=== PATIENT | male | born 1990 | race Two or more races ===

== ENCOUNTER 2018-03-11 15:51 | Emergency (ER) | payer OTHER ==
[2018-03-11] MEDS ORDERED: NS 1,000 ML IV ONE ×3 (16:59→18:29)
--- NOTE | 2018-03-11 16:59 | EDPHY ---
H & P Stated Complaint: ?syncope/seizure at work/felt hot/dehydrated/drinks etoh daily /now tachycar Time Seen by Provider: 03/11/18 16:58 HPI/ROS: HPI: This is a 27-year-old male who presents with Chief Complaint: ?syncope/seizure at work/felt hot/dehydrated/drinks etoh daily/ now tachycar Location: head Quality: Fainted Duration: 3 hr prior to arrival Signs and Symptoms:+ nausea, + vomiting x3, no abdominal pain, no urinary symptoms, no testicular groin pain, no diarrhea, no headache, no chest pain, no shortness of breath Timing: Acute Severity: Moderate Context: Patient reports that he normally drinks 50-60 oz of beer nightly but over the last few days has trying to slowly cut back. He was at work outside today and 80 degree weather when he was walking back to the truck and started to feel lightheaded. Next thing he remembers he was lying next to the truck and his coworkers were standing over him. He reports for breakfast early this morning around 6:00 a.m. He had a same much but he has not drink any fluids today. He reports that shortly after the incident he started to feel nauseous and vomited x3. He reports that he feels better at this time but slightly anxious. He reports that if he does not drink in the morning he starts to get shakes and feel anxious. He denies any history of alcohol withdrawal seizures. 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 No primary care provider. Denies any headache/neck pain. Denies any seizure activity/urinary incontinence/tongue biting. Modifying Factors: None Comment: ROS: see HPI Constitutional: No fever, no chills, no weight loss Eyes: No blurred vision Respiratory: No shortness of breath, no cough Cardiovascular: No chest pain Gastrointestinal: + nausea, + vomiting, no diarrhea Genitourinary: No dysuria Extremities: No myalgias Neurologic: No weakness, no numbness Skin: No rashes Hematologic: No bruising, no bleeding MEDICAL/SURGICAL/SOCIAL HISTORY: Medical history: Alcohol abuse. Does not take any regular medications. Surgical history: Denies Social history: Transient worker. CONSTITUTIONAL: Polite and cooperative slightly anxious adult male, awake and alert, no obvious distress HEENT: Atraumatic and normocephalic, PERRL, EOMI. Tympanic membranes clear. Oropharynx clear, no exudate and moist pink mucosa. Airway patent. No lymphadenopathy. No meningismus. Cardiovascular: Normal S1/S2, tachycardia, regular rhythm, without murmur rub or gallop. PULMONARY/CHEST: Symmetrical and nontender. Clear to auscultation bilaterally. Good air movement. No accessory muscle usage. ABDOMEN: Soft, nondistended, nontender, no rebound, no guarding, no peritoneal signs, no masses or organomegaly. No CVAT. EXTREMITIES: 2/2 pulses, strength 5/5, no deformities, no clubbing, no cyanosis or edema. NEUROLOGICAL: no focal neuro deficits. GCS 15. Cranial nerves 2-12 grossly intact. SKIN: Warm and dry, no erythema. no rash. Good capillary refill. Source: Patient Exam Limitations: No limitations - Personal History Current Tetanus/Diphtheria Vaccine: Unsure - Medical/Surgical History Hx Asthma: No Hx Chronic Respiratory Disease: No Hx Diabetes: No Hx Cardiac Disease: No Hx Renal Disease: No Hx Cirrhosis: No Hx Alcoholism: No Hx HIV/AIDS: No Hx Splenectomy or Spleen Trauma: No Other PMH: ?seizures/etoh - Social History Smoking Status: Never smoked Constitutional: Initial Vital Signs Temperature (C) 37.1 C 03/11/18 16:30 Heart Rate 135 H 03/11/18 16:30 Respiratory Rate 20 03/11/18 16:30 Blood Pressure 141/100 H 03/11/18 16:30 O2 Sat (%) 94 03/11/18 16:30 O2 Delivery Mode Room Air Allergies/Adverse Reactions: No Known Allergies Allergy (Unverified 03/11/18 16:29) Home Medications: Medication Instructions Recorded NK [No Known Home Meds] 03/11/18 Medical Decision Making - Diagnostics EKG Interpretation: 12 lead EKG: Indication: Dizziness Rhythm: Sinus tachycardia; rate 124 beats per minute [place]: Normal Intervals: Normal QRS: Normal ST segments: Normal T-waves: Nonspecific changes INTERPRETATION: No acute ischemic changes The 12 lead EKG was interpreted by myself and with attending. Imaging Results: Imaging Impressions Abdomen CT 03/11/18 18:14 Impression: 1. The abdomen and pelvis are negative for acute localizing features. 2. Suspect hepatic steatosis. Results called and discussed with Riya Nichols PA-C, on 03/11/2018 at 19:10. ED Course/Re-evaluation: EKG, labs, IV fluids, IV medications ordered Suspect syncope etiology is related to hypovolemia and alcohol withdrawal CIWA upon arrival equals 20 Given 2 L normal saline and IV Ativan 1 mg upon arrival. 1813: Labs reviewed and show elevated LFTs; lipase level within normal limits Decision made to order CT abdomen and pelvis scan for further evaluation of liver disease versus pancreatitis 183: Repeat CIWA=5; heart rate now 110s; another L of normal saline ordered for total of 3. EKG reviewed shows sinus tachycardia with a rate 124 beats per minute nonspecific T changes no acute ischemic changes. 1904: Called by Dr. Calixto, radiologist, who advised that CT abdomen and pelvis scan shows big fatty liver, no signs of pancreatitis; lung bases no pneumonia. CIWA equals 4 at discharge. Given Librium 50 mg and Ativan p.o. 1 mg. No signs of alcohol withdrawal seizures/delirium. Does not meet M1 hold or Detainer criteria. This patient was seen under the supervision of my secondary supervising physician. I evaluated care for this patient independently. Differential Diagnosis: Syncope including but not limited to vasovagal syncope, arrhythmia, dehydration , and blood loss. - Data Points Laboratory Results: Laboratory Results 03/11/18 17:07 03/11/18 17:07 03/11/18 03/11/18 03/11/18 18:14 17:07 17:07 WBC 13.78 10^3/uL H 10^3/uL (3.80-9.50) RBC 5.28 10^6/uL 10^6/uL (4.40-6.38) Hgb 16.9 g/dL g/dL (13.7-17.5) Hct 48.4 % % (40.0-51.0) MCV 91.7 fL fL (81.5-99.8) MCH 32.0 pg pg (27.9-34.1) MCHC 34.9 g/dL g/dL (32.4-36.7) RDW 12.8 % % (11.5-15.2) Plt Count 224 10^3/uL 10^3/uL (150-400) MPV 9.9 fL fL (8.7-11.7) Neut % (Auto) 84.1 % H % (39.3-74.2) Lymph % (Auto) 3.7 % L % (15.0-45.0) [place] % (Auto) 11.5 % % (4.5-13.0) Eos % (Auto) 0.0 % L % (0.6-7.6) Baso % (Auto) 0.2 % L % (0.3-1.7) Nucleat RBC Rel Count 0.0 % % (0.0-0.2) Absolute Neuts (auto) 11.58 10^3/uL H 10^3/uL (1.70-6.50) Absolute Lymphs (auto) 0.51 10^3/uL L 10^3/uL (1.00-3.00) Absolute Monos (auto) 1.59 10^3/uL H 10^3/uL (0.30-0.80) Absolute Eos (auto) 0.00 10^3/uL L 10^3/uL (0.03-0.40) Absolute Basos (auto) 0.03 10^3/uL 10^3/uL (0.02-0.10) Absolute Nucleated RBC 0.00 10^3/uL 10^3/uL (0-0.01) Immature Gran % 0.5 % % (0.0-1.1) Immature Gran # 0.07 10^3/uL 10^3/uL (0.00-0.10) Sodium 135 mEq/L mEq/L (135-145) Potassium 4.4 mEq/L mEq/L (3.5-5.2) Chloride 97 mEq/L mEq/L (97-110) Carbon Dioxide 19 mEq/l L mEq/l (22-31) Anion Gap 19 mEq/L H mEq/L (8-16) BUN 18 mg/dL mg/dL (7-23) Creatinine 1.2 mg/dL mg/dL (0.7-1.3) Estimated GFR > 60 Glucose 103 mg/dL H mg/dL (70-100) Calcium 10.7 mg/dL H mg/dL (8.5-10.4) Phosphorus 3.1 mg/dL mg/dL (2.5-4.5) Total Bilirubin 1.7 mg/dL H mg/dL (0.1-1.4) Conjugated Bilirubin 0.7 mg/dL H mg/dL (0.0-0.5) Unconjugated Bilirubin 1.0 mg/dL mg/dL (0.0-1.1) AST 258 IU/L H IU/L (17-59) ALT 100 IU/L H IU/L (21-72) Alkaline Phosphatase 144 IU/L H IU/L (38-126) Total Protein 9.5 g/dL H g/dL (6.3-8.2) Albumin 5.4 g/dL H g/dL (3.5-5.0) Lipase 213 IU/L IU/L (23-300) Ethyl Alcohol < 10 mg/dL mg/dL (0-10) Medications Given: Discontinued Medications Chlordiazepoxide HCl (Librium) 50 mg PO EDNOW ONE Stop: 03/11/18 20:14 Last Admin: 03/11/18 20:17 Dose: 50 mg Sodium Chloride (Ns) 1,000 mls @ 0 mls/hr IV ONCE ONE; Wide Open PRN Reason: Protocol Stop: 03/11/18 17:00 Last Admin: 03/11/18 17:50 Dose: 1,000 mls Sodium Chloride (Ns) 1,000 mls @ 0 mls/hr IV EDNOW ONE; Wide Open PRN Reason: Protocol Stop: 03/11/18 17:18 Last Admin: 03/11/18 17:53 Dose: 1,000 mls Sodium Chloride (Ns) 1,000 mls @ 0 mls/hr IV EDNOW ONE; Wide Open PRN Reason: Protocol Stop: 03/11/18 18:30 Last Admin: 03/11/18 19:00 Dose: 1,000 mls Lorazepam (Ativan Injection) 1 mg IVP EDNOW ONE Stop: 03/11/18 17:18 Last Admin: 03/11/18 17:50 Dose: 1 mg Lorazepam (Ativan) 1 mg PO EDNOW ONE Stop: 03/11/18 20:14 Last Admin: 03/11/18 20:16 Dose: 1 mg Departure - Departure Disposition: Home, Routine, Self-Care Clinical Impression: Elevated liver function tests, Hypovolemia due to dehydration, Fatty liver, alcoholic, Alcohol abuse Alcohol withdrawal Qualifiers: Complication of substance-induced condition: uncomplicated Qualified Code(s): F10.230 - Alcohol dependence with withdrawal, uncomplicated Condition: Good Instructions: Cirrhosis (ED), Abuse of Alcohol (ED) Additional Instructions: Please continue to slowly decrease your alcohol intake. CT abdomen and pelvis scan today shows a big fatty liver consistent with your chronic alcohol abuse. Your liver enzymes are mildly elevated today in need to be repeated in the next 6-8 weeks to document interval change. Consume a minimum of 8-10 glasses of water or electrolyte fluid replacement drinks that include Gatorade, Powerade, Pedialyte. Eat a bland diet for the next 48 hours and then slowly advance as tolerated. Establish care for for primary provider at [facility]. Return to the ER immediately if you experience new, continued or worsening abdominal pain, fevers/chills, inability to tolerate oral intake, new pain, or any other symptoms that concern you. Referrals: [facility],. [Clinic] - As per Instructions
[2018-03-11] MEDS ORDERED: LORazepam 2 MG/ML INJ IVP ONE (17:17)
[2018-03-11 17:19] LABS: PLATELET COUNT 224 10^3/uL (150-400)
[2018-03-11] MEDS ORDERED: IOPAMIDOL (ISOVUE-300) 100 ML BTL ONE (18:16)
--- NOTE | 2018-03-11 18:29 | CPEKG ---
Heart Rate: 124 RR Interval: 484 P-R Interval: 132 QRSD Interval: 98 QT Interval: 320 QTC Interval: 460 P [place]: 60 QRS [place]: 59 T Wave [place]: -32 EKG Severity - ABNORMAL ECG - EKG Impression: SINUS TACHYCARDIA EKG Impression: NONSPECIFIC T ABNORMALITIES, INFERIOR LEADS Electronically Signed By: Yasmin Dennison 12-Mar-2018 12:33:42
[2018-03-11 20:11] VITALS: BP 147/101
[2018-03-11] MEDS ORDERED: chlordiazePOXIDE 25 MG CAP PO ONE (20:13)
[2018-03-11] MEDS ORDERED: LORazepam 1 MG TAB PO ONE (20:13)
== END 2018-03-11 20:28 | disposition home or self-care (01) ==
DX: R55 Syncope and collapse (principal); E86.0 Dehydration; R94.5 Abnormal results of liver function studies; W18.30XA Fall on same level, unspecified, initial encounter; Y99.0 Civilian activity done for income or pay
CPT/HCPCS: 96374; G0480; J2060; Q9967